=== PATIENT | male | born 1960 | race Caucasian/White ===

== ENCOUNTER 2017-03-22 05:22 | Inpatient (IN) | payer OTHER ==
[2017-03-22] MEDS ORDERED: DEXAMETHASONE 10 MG/ML VIAL IVP ONE (06:00)
[2017-03-22] MEDS ORDERED: GADOBUTROL 10 ML VIAL IVP ONE (06:12)
[2017-03-22 06:19] LABS: % IMMATURE GRANULYOCYTES 0.2 % (0.0-1.1); ABSOLUTE IMMATURE GRANULOCYTES 0.01 10^3/uL (0.00-0.10); ADD DIFF? NO; ADD MORPH? NO; ADD SCAN? NO; ATYPICAL LYMPHOCYTE FLAG 10 (0-99); FRAGMENT RBC FLAG 0 (0-99); HEMATOCRIT 48.2 % (40.0-51.0); HEMOGLOBIN 16.4 g/dL (13.7-17.5); LEFT SHIFT FLG 0 (0-99); LIPEMIA HEMOLYSIS FLAG 90 (0-99); MEAN CELL HEMOGLOBIN 33.7 pg (27.9-34.1); MEAN CELL VOLUME 99.2 fL (81.5-99.8); PLATELET CLUMPS FLAG 10 (0-99); PLATELET COUNT 144 10^3/uL (150-400); RED BLOOD CELL COUNT 4.86 10^6/uL (4.40-6.38); RED CELL DISTRIBUTION WIDTH 13.5 % (11.5-15.2)
[2017-03-22 06:23] LABS: INR 1.01 (0.83-1.16); PROTIME(PATIENT) 13.2 SEC (12.0-15.0)
[2017-03-22 06:24] LABS: APTT 28.2 SEC (23.0-38.0)
[2017-03-22] MEDS ORDERED: BACITRACIN 50,000 UNITS/10 ML SYR IRR ONE ×2 (06:30→08:53)
[2017-03-22] MEDS ORDERED: THROMBIN (BOVINE) 20,000 UNIT VIAL TP ONE (06:30)
[2017-03-22] MEDS ORDERED: LIDOCAINE 1% 5 ML SDV ID PRN (06:30)
[2017-03-22] MEDS ORDERED: BUPIVACAINE/EPI 0.25% 30 ML SDV ONE (06:30)
[2017-03-22] MEDS ORDERED: AVITENE POWDER 1 GM JAR TP ONE (06:30)
[2017-03-22] MEDS ORDERED: LR 1,000 ML IV ONE (06:30)
[2017-03-22] MEDS ORDERED: GENTAMICIN SULFATE 80 MG/2 ML VIAL ONE ×2 (06:33→08:53)
[2017-03-22 06:35] LABS: ANION GAP 8 mEq/L (8-16); CALCIUM 9.4 mg/dL (8.5-10.4); CARBON DIOXIDE 21 mEq/l (22-31); CHLORIDE 109 mEq/L (97-110); CREATININE 0.9 mg/dL (0.7-1.3); GLOMERULAR FILTRATION RATE > 60; GLUCOSE 94 mg/dL (70-100); POTASSIUM 4.5 mEq/L (3.5-5.2); SODIUM 138 mEq/L (134-144)
[2017-03-22] MEDS ORDERED: ceFAZolin 2 GM/DEXTROSE 100 ML IV ONE (07:00)
[2017-03-22] MEDS ORDERED: PROPOFOL/EMULSION 500 MG/50 ML BOTTLE IV ONE ×4 (07:07→08:16)
[2017-03-22] MEDS ORDERED: REMIFENTANIL HCL 1 MG VIAL ONE ×4 (07:07→09:44)
[2017-03-22] MEDS ORDERED: MIDAZOLAM 2 MG/2 ML VIAL ONE (07:07)
[2017-03-22] MEDS ORDERED: SUCCINYLCHOLINE CHLORIDE*ANESTHESIA ONLY*200 MG/10 ML SYR IVP ONE (07:19)
[2017-03-22] MEDS ORDERED: LIDOCAINE 2% 5 ML SDV ONE (07:19)
[2017-03-22] MEDS ORDERED: PHENYLEPHRINE HCL 100 MCG/ML SYR ONE (07:36)
[2017-03-22] MEDS ORDERED: SURGIFLO MATRIX KIT WITH THROMBIN TP ONE (08:57)
[2017-03-22] MEDS ORDERED: SENNOSIDES 1 TAB PO PRN (08:59)
[2017-03-22] MEDS ORDERED: NON-FORMULARY NEW DRUG (Lovastatin [Lovastatin] 40 MG) PO SCH (09:00)
[2017-03-22] MEDS ORDERED: levETIRAcetam 750 MG in NS 100 ML IV ONE (09:00)
[2017-03-22] MEDS ORDERED: niCARdipine/NACL 200 ML IV ONE (09:00)
[2017-03-22] MEDS ORDERED: LANSOPRAZOLE SUSP 3 MG/ML UDSYR (Peds) PO SCH (09:00)
[2017-03-22] MEDS ORDERED: VASOPRESSIN 20 UNIT/ML VIAL ONE (10:01)
[2017-03-22] MEDS ORDERED: ONDANSETRON 4 MG/2 ML VIAL ONE (10:01)
[2017-03-22] MEDS ORDERED: DEXAMETHASONE 4 MG/ML VIAL ONE ×2 (10:01)
[2017-03-22] MEDS ORDERED: RANITIDINE 50 MG/2 ML VIAL ONE (10:01)
[2017-03-22] MEDS ORDERED: MAGNESIUM HYDROXIDE 30 ML UDCUP PO PRN (10:30)
[2017-03-22] MEDS ORDERED: ACETAMINOPHEN 325 MG TAB PO PRN (10:30)
[2017-03-22] MEDS ORDERED: LACTULOSE 20 GM/30 ML UDCUP PO PRN (10:30)
[2017-03-22] MEDS ORDERED: niCARdipine/NACL 200 ML IV PRN (10:30)
[2017-03-22] MEDS ORDERED: *MD ORDERING ONLY-DEXAMETHASONE TAPER PO SCH ×2 (10:30→11:30)
[2017-03-22] MEDS ORDERED: BISACODYL 10 MG SUPP PR PRN (10:30)
[2017-03-22] MEDS ORDERED: POLYETHYLENE GLYCOL 3350 17 GM PKT PO PRN (10:30)
--- NOTE | 2017-03-22 10:47 | POSTOPPROG ---
Post Op Note Date of Operation: 03/22/17 Surgeon: Ari Trevino Neuro Intensivist Physician: Yassine Hamm MD Anesthesia: GET(General Endotracheal) Pre-op Diagnosis: brain mass Post-op Diagnosis: brain mass Indication: brain mass Procedure: Left sided craniotomy for mass debulking/resection Inf/Abcess present in the surg proc area at time of surgery?: No EBL: Minimal PA Addendum - Addendum .: S: Denies any pain, resting comfortably O: NAD A&Ox3 Speech in full muffle sentences. MAEx4 5/5 and equal in BUE and BLE. Incisional dressing c/d/i A/P S/P left sided craniotomy for mass resection/debulking -Admit to ICU -Keppra 750mg bid for seizure prophylaxis -SBP < 140, nicardipine ordered -Keep head of bed > 30 degrees -DVT prophylaxis, SCDs, Kameron hose, Home Lovenox ok to restart post-op day 2 -Post op MRI pending -Pathology pending -Please notify NS with any changes to neuro/motor exam
[2017-03-22] MEDS ORDERED: fentaNYL 100 MCG/2 ML INJ ONE (10:52)
[2017-03-22] MEDS: HYDROCODONE/APAP 5/325 TAB PO PRN ×2 (11:42→15:18)
[2017-03-22] MEDS: NS W/ 20 KCl/L 1,000 ML IV SCH ×2 (11:42→23:06)
[2017-03-22] MEDS: LISINOPRIL 2.5 MG TAB PO SCH (12:22)
[2017-03-22] MEDS: DEXAMETHASONE 4 MG TAB PO SCH ×3 (12:22→23:06)
[2017-03-22] MEDS: HYDROCODONE/APAP 10/325 TAB PO PRN ×4 (12:22→23:07)
[2017-03-22 14:13] LABS: ANION GAP 9 mEq/L (8-16); CALCIUM 8.9 mg/dL (8.5-10.4); CARBON DIOXIDE 23 mEq/l (22-31); CHLORIDE 110 mEq/L (97-110); CREATININE 0.7 mg/dL (0.7-1.3); GLOMERULAR FILTRATION RATE > 60; GLUCOSE 124 mg/dL (70-100); POTASSIUM 4.6 mEq/L (3.5-5.2); SODIUM 142 mEq/L (134-144)
--- NOTE | 2017-03-22 15:40 | GOP ---
[f rep st] OPERATIVE REPORT DATE OF OPERATION: 03/22/2017 SURGEON: Yassine Hamm MD INDUSTRIAL LABORER: 1. autopsy assistant: Cassy Beaulieu PA-C. 2. Second assist: Ari Trevino MD. PREOPERATIVE DIAGNOSIS: Contrast enhancing brain mass in patient who has had previous glioblastoma. POSTOPERATIVE DIAGNOSIS: Contrast enhancing brain mass in patient who has had previous glioblastoma . PROCEDURE PERFORMED: 1. Left temporal craniotomy. 2. Microsurgical gross total resection of left temporal primary brain tumor. 3. Use of the operative microscope. 4. Stealth stereotactic neuronavigation for volumetric gross total resection of brain tumor. 5. Intraoperative somatosensory evoked potential and motor evoked potential monitoring. FINDINGS: Successful tumor removal. SPECIMENS: Left temporal brain tumor for frozen section and permanent pathology. ESTIMATED BLOOD LOSS: 50 cc. 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 He has been followed for this and has been on adjuvant radiation and chemotherapy and has had no sign of recurrence in the tumor bed. He has, however, had developm ent of some contrast enhancement in the inferior temporal gyrus lateral to the temporal horn of the lateral ventricle which has been getting somewhat larger over the last couple of scans. It is not c lear if this would represent recurrent tumor versus radiation necrosis. He presents today electivel y for biopsy and resection. DESCRIPTION OF PROCEDURE: After informed consent was obtained from the patient, the patient was bro ught to the operating room, was placed in supine position on the operating table. A formal time-out was performed, identifying the patient by name, medical record number, and date of . Preopera tive antibiotics were given. The endotracheal tube was placed, and general endotracheal anesthesia was smoothly induced. Patient was given preoperative Decadron and Keppra. The head was placed in t he Vergara pins and turned slightly toward the right side exposing the left temporal region. The S tealth was then registered to the scalp using fiducial landmarks and checked for accuracy using know n surface landmarks. We then planned a reverse curvilinear incision over the ear which would be sta ndard for a subtemporal craniotomy. 10 cc of 0.25% Marcaine with epinephrine was infiltrated in the skin for hemostasis. The head was then prepped and draped in a normal sterile fashion. The skin i ncision was made using a 10 blade, and the subcutaneous tissues were dissected using monopolar caute ry with care to preserve the superficial temporal artery. The temporalis muscle and its fascia was opened in line with the incision, and a single myocutaneous flap was retracted inferiorly exposing t he root of the zygoma. A single bur hole was created at the root of the zygoma, and a 2.5 by 2.5 cm craniotomy flap was removed using the craniotome with its base at the subtemporal skull base above the ear. A high-speed drill was used to drill down the bony edges to provide good dural retraction. The superior portion of the petrous bone was incompetent, and some air cells were visualized. The se were packed with a small piece of temporalis muscle and bone wax. At this point, the dura was op ened in a curvilinear fashion with base inferiorly, and this was retracted inferiorly. The operativ e microscope was brought on the field, and the remainder of the procedure was performed under high-p ower magnification. First, the margins of the tumor were identified using the stealth anteriorly and posteriorly on the inferior temporal gyrus. The sulcus between the middle and inferior temporal gyri was dissected, an d the middle temporal gyrus was preserved. We then made a small corticectomy and were able to enter into the inferior temporal gyrus, and some clearly abnormal tissue was seen. This was sent for fro danette section which returned as a hypercellular mass consistent with recurrent glioblastoma. We then, under the operative microscope, continued resecting more medially and superiorly until the temporal horn of the lateral ventricle was encountered. A small piece of Gelfoam was placed in the ventricl e to avoid any bleeding in the ventricle. We then continued the resection until we did not see any more abnormal tissue. The fusiform gyrus was visualized medially, and we did not enter into the fus iform gyrus. The margins were checked completely using the stealth stereotaxis, and we appeared to be well around the margins of the abnormal tissue. The cavity was inspected 1 more time and careful ly irrigated to be sure that we did not see any more abnormal tissue. We then lined the edges of th e cavity with Surgicel. The dura was then closed in a running fashion using 4-0 Nurolon. Again, th e petrous air cells were waxed using bone wax. The craniotomy flap was plated back in place using S ynthes titanium plates and screws. The temporalis muscle and fascia were closed using interrupted 2 -0 Vicryl. The wound was copiously irrigated using bacitracin irrigation. The galea was closed usi ng interrupted 2-0 Vicryl, and the skin was closed using a running nylon. Patient has then removed from the Vergara pins. He was extubated. He was transferred to the PACU in stable condition. The re were no operative complications. I was scrubbed and present for the entire procedure. All spong e and needle counts were correct at the end of the case. FLUIDS AND URINE OUTPUT: Per the anesthesia record. DRAINS: None. /[id number]/MODL
[2017-03-22] MEDS: ONDANSETRON 4 MG/2 ML VIAL IVP PRN (16:48)
[2017-03-22] MEDS: HYDROmorphONE/DILAUDID 1 MG/ML SYR IVP PRN ×2 (16:59→20:30)
[2017-03-22] MEDS: FAMOTIDINE 20 MG TAB PO SCH (21:40)
[2017-03-23 04:28] LABS: % IMMATURE GRANULYOCYTES 0.5 % (0.0-1.1); ABSOLUTE IMMATURE GRANULOCYTES 0.06 10^3/uL (0.00-0.10); ADD DIFF? NO; ADD MORPH? NO; ADD SCAN? NO; ATYPICAL LYMPHOCYTE FLAG 0 (0-99); FRAGMENT RBC FLAG 0 (0-99); HEMATOCRIT 40.8 % (40.0-51.0); HEMOGLOBIN 14.3 g/dL (13.7-17.5); LEFT SHIFT FLG 0 (0-99); LIPEMIA HEMOLYSIS FLAG 90 (0-99); MEAN CELL HEMOGLOBIN 34.8 pg (27.9-34.1); MEAN CELL VOLUME 99.3 fL (81.5-99.8); PLATELET CLUMPS FLAG 0 (0-99); PLATELET COUNT 131 10^3/uL (150-400); RED BLOOD CELL COUNT 4.11 10^6/uL (4.40-6.38); RED CELL DISTRIBUTION WIDTH 13.5 % (11.5-15.2)
[2017-03-23] MEDS: HYDROCODONE/APAP 10/325 TAB PO PRN ×2 (06:15→18:08)
[2017-03-23] MEDS: DEXAMETHASONE 4 MG TAB PO SCH ×3 (06:15→21:43)
[2017-03-23] MEDS ORDERED: DIAZEPAM 5 MG TAB PO PRN (08:28)
--- NOTE | 2017-03-23 08:33 | NEUSURGPN ---
Assessment/Plan: 56 y/o Catheter Insertion Date: 03/22/17 Neurosurgery Physical Exam - Vitals, I&O, Labs I and O 03/22/17 03/23/17 03/24/17 05:59 05:59 05:59 Intake Total 4066 Output Total 4450 Balance -384 Weight 93.894 kg Intake: Oral (ml) 750 IV Intake (ml) 2195 IV Infused (ml) 1121 NS W/ 20 KCl/L 1,000 ml @ 1121 100 mls/hr IV CONT MELI Rx#:[id number] Output: Urine (ml) 4300 Catheter 4300 Estimated Blood Loss (ml) 150 Vital Signs Temp Pulse Resp BP Pulse Ox 36.8 C 86 15 121/72 H 93 03/23/17 08:00 03/23/17 08:00 03/23/17 08:00 03/23/17 08:00 03/23/17 08:00 Laboratory Results 03/23/17 04:11 03/22/17 13:48 ICD10 Worksheet Patient Problems: Problems Problem Status Onset Pulmonary embolism Acute
--- NOTE | 2017-03-23 08:35 | NEUSURGPN ---
Assessment/Plan: 56 S/P left sided craniotomy for mass resection/debulking -Continue Keppra 750mg bid for seizure prophylaxis -SBP < 140, nicardipine ordered -Keep head of bed > 30 degrees -DVT prophylaxis, SCDs, Kameron hose, Home Lovenox ok to restart post-op day 2 -Post op MRI pending -Pathology pending -Please notify NS with any changes to neuro/motor exam -Patient see with Dr. Trevino Subjective: Jaw pain, surgical site pain Objective: NAD A&Ox3 CN II-XII grossly intact. EOMI, PERRLA. Incision c/d/i, 03/09 and equal in BUE and BLE Catheter Insertion Date: 03/22/17 - Physician Patient Seen by : Belinda Neurosurgery Physical Exam - Vitals, I&O, Labs I and O 03/22/17 03/23/17 03/24/17 05:59 05:59 05:59 Intake Total 4066 Output Total 4450 Balance -384 Weight 93.894 kg Intake: Oral (ml) 750 IV Intake (ml) 2195 IV Infused (ml) 1121 NS W/ 20 KCl/L 1,000 ml @ 1121 100 mls/hr IV CONT MELI Rx#:[id number] Output: Urine (ml) 4300 Catheter 4300 Estimated Blood Loss (ml) 150 Vital Signs Temp Pulse Resp BP Pulse Ox 36.8 C 86 15 121/72 H 93 03/23/17 08:00 03/23/17 08:00 03/23/17 08:00 03/23/17 08:00 03/23/17 08:00 Laboratory Results 03/23/17 04:11 03/22/17 13:48 ICD10 Worksheet Patient Problems: Problems Problem Status Onset Pulmonary embolism Acute
[2017-03-23] MEDS ORDERED: levETIRAcetam 750 MG in NS 100 ML IV SCH (09:00)
[2017-03-23] MEDS: PRAVASTATIN SODIUM 40 MG TAB PO SCH (09:40)
[2017-03-23] MEDS: LISINOPRIL 2.5 MG TAB PO SCH (09:40)
[2017-03-23] MEDS ORDERED: GADOBUTROL 10 ML VIAL IVP ONE (11:16)
[2017-03-23] MEDS: PANTOPRAZOLE SODIUM 40 MG TAB PO SCH (11:50)
[2017-03-23] MEDS: FAMOTIDINE 20 MG TAB PO SCH (11:55)
[2017-03-23] MEDS: ONDANSETRON 4 MG/2 ML VIAL IVP PRN (18:10)
[2017-03-23] MEDS: levETIRAcetam 500 MG TAB PO SCH (21:42)
[2017-03-24] MEDS: HYDROCODONE/APAP 10/325 TAB PO PRN ×2 (00:19→05:25)
[2017-03-24] MEDS: DEXAMETHASONE 4 MG TAB PO SCH ×3 (05:26→21:58)
[2017-03-24] MEDS: PANTOPRAZOLE SODIUM 40 MG TAB PO SCH (09:34)
[2017-03-24] MEDS: LISINOPRIL 2.5 MG TAB PO SCH (09:34)
[2017-03-24] MEDS: PRAVASTATIN SODIUM 40 MG TAB PO SCH (09:35)
[2017-03-24] MEDS: levETIRAcetam 250 MG TAB PO SCH ×2 (10:14→20:17)
[2017-03-24] MEDS: levETIRAcetam 500 MG TAB PO SCH (10:17)
--- NOTE | 2017-03-24 11:05 | NEUSURGPN ---
Assessment/Plan: 56 S/P left sided craniotomy for mass resection/debulking. POD#2 -Continue Keppra 750mg bid for seizure prophylaxis -SBP < 140, -Keep head of bed > 30 degrees -DVT prophylaxis, SCDs, Kameron hose, Home Lovenox ok to restart post-op day 2. 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 Today vs tomorrow. Subjective: Pt resting in bed, c/o headache. Otherwise feeling ok. Objective: AAOx3 NAD VSS MAEx4 No droop Incision cdi +LT Urinary Catheter in Place: No Catheter Insertion Date: 03/22/17 - Physician Discussed Patient with : Belinda Neurosurgery Physical Exam - Vitals, I&O, Labs I and O 03/23/17 03/24/17 03/25/17 05:59 05:59 05:59 Intake Total 4066 400 Output Total 4450 Balance -384 400 Intake: Oral (ml) 750 400 IV Intake (ml) 2195 0 IV Infused (ml) 1121 NS W/ 20 KCl/L 1,000 ml @ 1121 100 mls/hr IV CONT MELI Rx#:[id number] Output: Urine (ml) 4300 Catheter 4300 Estimated Blood Loss (ml) 150 Other: Intake Quantity Yes Sufficient Number of Voids Toilet 1 Vital Signs Temp Pulse Resp BP Pulse Ox 36.8 C 91 16 123/80 H 90 L 03/24/17 08:00 03/24/17 08:00 03/24/17 08:00 03/24/17 09:34 03/24/17 08:00 Laboratory Results 03/23/17 04:11 03/22/17 13:48 ICD10 Worksheet Patient Problems: Problems Problem Status Onset Pulmonary embolism Acute
[2017-03-24] MEDS: ENOXAPARIN 100 MG/ML SYR SC SCH ×2 (11:43→20:16)
[2017-03-25] MEDS: DEXAMETHASONE 4 MG TAB PO SCH ×2 (08:02→14:21)
[2017-03-25 08:17] VITALS: BP 117/83; PULSE 71; RESP 16; TEMP 98.1; O2SAT 90
[2017-03-25] MEDS: levETIRAcetam 250 MG TAB PO SCH (08:42)
[2017-03-25] MEDS: LISINOPRIL 2.5 MG TAB PO SCH (08:44)
[2017-03-25] MEDS: ENOXAPARIN 100 MG/ML SYR SC SCH (08:45)
[2017-03-25] MEDS: PRAVASTATIN SODIUM 40 MG TAB PO SCH (08:45)
[2017-03-25] MEDS: PANTOPRAZOLE SODIUM 40 MG TAB PO SCH (08:45)
[2017-03-25] MEDS ORDERED: MAGNESIUM CITRATE 300 ML BOTTLE PO PRN (09:11)
--- NOTE | 2017-03-25 10:01 | NEUSURGPN ---
Assessment/Plan: 56 S/P left sided craniotomy for mass resection/debulking. POD#3 -Continue Keppra 750mg bid for seizure prophylaxis -SBP < 140, -Keep head of bed > 30 degrees -DVT prophylaxis, SCDs, Kameron hose, Home Lovenox ok to restart post-op day 2. 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 Orders in for DC to home. Subjective: Pt resting in bed, states he feels much better today. at bedside. Objective: AAOx3 NAD VSS MAEx4 Motor 5/5 BUE/BLE NO droop Incision cdi +LT Urinary Catheter in Place: No Catheter Insertion Date: 03/22/17 Neurosurgery Physical Exam - Vitals, I&O, Labs I and O 03/24/17 03/25/17 03/26/17 05:59 05:59 05:59 Intake Total 400 1000 Balance 400 1000 Intake: Oral (ml) 400 1000 IV Intake (ml) 0 Other: Intake Quantity Yes Yes Sufficient Number of Voids Toilet 1 1 Vital Signs Temp Pulse Resp BP Pulse Ox 36.7 C 71 16 117/83 H 90 L 03/25/17 08:15 03/25/17 08:15 03/25/17 08:15 03/25/17 08:44 03/25/17 08:15 Laboratory Results 03/23/17 04:11 03/22/17 13:48 ICD10 Worksheet Patient Problems: Problems Problem Status Onset Pulmonary embolism Acute
[2017-03-25] MEDS ORDERED: DEXAMETHASONE 4 MG TAB PO SCH (14:00)
[2017-03-25] MEDS: HYDROCODONE/APAP 5/325 TAB PO PRN (14:22)
[2017-03-28] MEDS ORDERED: DEXAMETHASONE 4 MG TAB PO SCH (21:00)
[2017-03-31] MEDS ORDERED: DEXAMETHASONE 2 MG TAB PO SCH (21:00)
[2017-04-04] MEDS ORDERED: DEXAMETHASONE 2 MG TAB PO SCH (09:00)
== END 2017-03-25 16:46 | disposition home or self-care (01) | DRG 27 ==
LOC: F3E 05:22 → F2N 11:16 → F3N 03-23 12:28
PROVIDERS: ADMIT Neurological Surgery; ATTEND Neurological Surgery
PROC: 00B00ZX Excision of Brain, Open Approach, Diagnostic (ICD-10-PCS; principal; 2017-03-22 07:15)
DX: C71.2 Malignant neoplasm of temporal lobe (principal); I10 Essential (primary) hypertension; E78.5 Hyperlipidemia, unspecified; K21.9 Gastro-esophageal reflux disease without esophagitis
CPT/HCPCS: 92507-GN; 92523-GN; 97161-GP; 97165-GO; 97535-GO; A9585; C1713; G8978-GP-CI; G8979-GP-CI; G8987-GO-CI; G8988-GO-CH; G8988-GO-CI; G8989-GO-CH; G9168-GN-CJ; G9169-GN-CI; J0330; J0690; J1100; J1170; J1650; J1953; J2250; J2370; J2405; J2704; J2780; J3010